=== PATIENT | female | born 1955 | race Caucasian/White ===

== ENCOUNTER → 2017-03-30 | Outpatient (CLI) | payer OTHER, MEDICAID | LOC: FIMAGING 14:50 | PROVIDERS: ATTEND Physician Assistant | DX: Z12.39 Encounter for other screening for malignant neoplasm of breast (principal); N63 Unspecified lump in breast | CPT/HCPCS: G0204 ==

== ENCOUNTER 2019-02-11 10:21 | Emergency (ER) | payer OTHER, MEDICAID ==
--- NOTE | 2019-02-11 10:42 | EDPHY ---
H & P Time Seen by Provider: 02/11/19 10:40 HPI/ROS: Chief complaint. Abdominal pain HPI. 63-year-old female with 2 day history right upper quadrant abdominal pain. She describes as steady and hurting with radiation to her back. Nausea but not vomiting or diarrhea. No fever. Somewhat worse with taking a deep breath. Patient does say that when the pain is bad it does help to hold her breath. Otherwise she is not short of breath. No chest pain. Not change with eating. However decreased oral intake. ROS 10 systems were reviewed and negative with the exception of the elements mentioned in the history of present illness Past Medical/Surgical History: Appendectomy, legally deaf Social History: Single, nonsmoker, no alcohol Smoking Status: Never smoked Physical Exam: General Appearance: Alert pleasant well-developed female mild distress vitals are stable Eyes: Pupils equal and round no pallor or injection. ENT, Mouth: Mucous membranes are moist. Respiratory: There are no retractions, lungs are clear to auscultation. Cardiovascular: Regular rate and rhythm. Gastrointestinal: Abdomen is soft with tenderness right upper quadrant. No masses. Normal bowel sounds Neurological: Awake and alert, sensory and motor exams grossly normal. Skin: Warm and dry, no rashes. Musculoskeletal: Neck is supple nontender. Extremities symmetrical, full range of motion. Psychiatric: Patient is oriented X 3, there is no agitation. Constitutional: Initial Vital Signs Temperature (C) 36.9 C 02/11/19 10:26 Heart Rate 56 L 02/11/19 10:26 Respiratory Rate 18 02/11/19 10:26 Blood Pressure 164/95 H 02/11/19 10:26 O2 Sat (%) 97 02/11/19 10:26 O2 Delivery Mode Room Air Allergies/Adverse Reactions: "CAT DANDOR" Allergy (Uncoded 02/11/19 10:25) Home Medications: Medication Instructions Recorded Naproxen 0 mg PO 03/16/12 Ranitidine HCl [Zantac 25] 0 mg PO 03/16/12 buPROPion [Wellbutrin (RX)] 0 mg PO 03/16/12 Hydrocodone/APAP 5/325 [[place] 1 each PO Q4-6PRN PRN #10 tab 02/11/19 5/325 (*)] Medical Decision Making - Diagnostics Imaging Results: Imaging Impressions Abdomen Ultrasound 02/11/19 10:50 Impression: 1. A 2 mm benign gallbladder polyp. 2. No cholelithiasis or biliary ductal dilation. 3. Mild hepatic steatosis. Findings and recommendations discussed with Emergency Department physician, EMANI TRENT at 11:42 hour, 02/11/2019. Final report concurs with initial preliminary interpretation. Chest X-Ray 02/11/19 10:50 Impression: Clear lungs. No acute process. Chest/Thorax CTA 02/11/19 11:42 Impression: 1. No definite pulmonary thromboemboli. 2. No aortic aneurysm or dissection. 3. No acute pulmonary disease. Findings and recommendations discussed with Emergency Department physician, Dr. Emani Trent at 1243 hours on February 11, 2019. Final report concurs with initial preliminary interpretation. A test result has been communicated to a licensed care provider and documented in the [facility] Findings | Result system on 02/11/2019 12:44, Message ID [id number]. Chest x-ray interpreted by me is normal Gallbladder ultrasound shows no evidence for cholelithiasis or cholecystitis Chest CT a shows no evidence of pulmonary embolus Procedures: IV normal saline. Fentanyl for pain. Zofran for nausea ED Course/Re-evaluation: Re-evaluation at 1:00 p.m.. Patient is stable. Patient and I discussed imaging and lab results. We discussed treatment plan including criteria for return and importance of follow-up and further evaluation. She expresses understanding and agreement Differential Diagnosis: Right upper quadrant pain for 2 days but normal workup. No evidence for cholecystitis or cholelithiasis. Elevated D-dimer but no evidence for pneumonia or pulmonary embolus. Etiology of patient's pain is not clear - Data Points Laboratory Results: Laboratory Results 02/11/19 10:45 02/11/19 10:45 02/11/19 02/11/19 02/11/19 10:45 10:45 10:45 WBC 6.91 10^3/uL 10^3/uL (3.80-9.50) RBC 4.81 10^6/uL 10^6/uL (4.18-5.33) Hgb 14.4 g/dL g/dL (12.6-16.3) Hct 44.5 % % (38.0-47.0) MCV 92.5 fL fL (81.5-99.8) MCH 29.9 pg pg (27.9-34.1) MCHC 32.4 g/dL g/dL (32.4-36.7) RDW 13.7 % % (11.5-15.2) Plt Count 304 10^3/uL 10^3/uL (150-400) MPV 10.5 fL fL (8.7-11.7) Neut % (Auto) 60.4 % % (39.3-74.2) Lymph % (Auto) 31.1 % % (15.0-45.0) [place] % (Auto) 6.8 % % (4.5-13.0) Eos % (Auto) 1.0 % % (0.6-7.6) Baso % (Auto) 0.6 % % (0.3-1.7) Nucleat RBC Rel Count 0.0 % % (0.0-0.2) Absolute Neuts (auto) 4.17 10^3/uL 10^3/uL (1.70-6.50) Absolute Lymphs (auto) 2.15 10^3/uL 10^3/uL (1.00-3.00) Absolute Monos (auto) 0.47 10^3/uL 10^3/uL (0.30-0.80) Absolute Eos (auto) 0.07 10^3/uL 10^3/uL (0.03-0.40) Absolute Basos (auto) 0.04 10^3/uL 10^3/uL (0.02-0.10) Absolute Nucleated RBC 0.00 10^3/uL 10^3/uL (0-0.01) Immature Gran % 0.1 % % (0.0-1.1) Immature Gran # 0.01 10^3/uL 10^3/uL (0.00-0.10) D-Dimer 0.64 ug/mLFEU H ug/mLFEU (0.00-0.50) Sodium 139 mEq/L mEq/L (135-145) Potassium 4.5 mEq/L mEq/L (3.5-5.2) Chloride 103 mEq/L mEq/L (97-110) Carbon Dioxide 23 mEq/l mEq/l (22-31) Anion Gap 13 mEq/L mEq/L (6-14) BUN 12 mg/dL mg/dL (7-23) Creatinine 0.7 mg/dL mg/dL (0.6-1.0) Estimated GFR > 60 Glucose 124 mg/dL H mg/dL (70-100) Calcium 9.4 mg/dL mg/dL (8.5-10.4) Total Bilirubin 0.4 mg/dL mg/dL (0.1-1.4) Conjugated Bilirubin 0.2 mg/dL mg/dL (0.0-0.5) Unconjugated Bilirubin 0.2 mg/dL mg/dL (0.0-1.1) AST 22 IU/L IU/L (14-46) ALT 33 IU/L IU/L (9-52) Alkaline Phosphatase 88 IU/L IU/L (38-126) Total Protein 7.1 g/dL g/dL (6.3-8.2) Albumin 4.3 g/dL g/dL (3.5-5.0) Lipase 91 IU/L IU/L (23-300) Medications Given: Discontinued Medications Fentanyl (Sublimaze) 50 mcg IVP EDNOW ONE Stop: 02/11/19 10:51 Last Admin: 02/11/19 11:07 Dose: 50 mcg Sodium Chloride (Ns) 1,000 mls @ 0 mls/hr IV EDNOW ONE; Wide Open PRN Reason: Protocol Stop: 02/11/19 10:51 Last Admin: 02/11/19 11:07 Dose: 1,000 mls Sodium Chloride (Ns) 1,000 mls @ 0 mls/hr IV ONCE ONE; Wide Open PRN Reason: Protocol Stop: 02/11/19 11:43 Last Admin: 02/11/19 12:00 Dose: 1,000 mls Ondansetron HCl (Zofran) 4 mg IVP EDNOW ONE Stop: 02/11/19 10:51 Last Admin: 02/11/19 11:07 Dose: 4 mg Departure - Departure Disposition: Home, Routine, Self-Care Clinical Impression: Abdominal pain Qualifiers: Abdominal location: right upper quadrant Qualified Code(s): R10.11 - Right upper quadrant pain Condition: Good Instructions: Acute Abdominal Pain (ED) Additional Instructions: Return for worsening symptoms Re-evaluation by PCP in the next 2 days. Hydrocodone as needed for pain Referrals: Sole Harding PA [Primary Care Provider] - 1-2 days without fail Prescriptions: Hydrocodone/APAP 5/325 [[place] 5/325 (*)] 1 each PO Q4-6PRN PRN #10 tab PRN Reason: Pain, Moderate
[2019-02-11] MEDS ORDERED: fentaNYL 100 MCG/2 ML INJ IVP ONE (10:50)
[2019-02-11] MEDS ORDERED: ONDANSETRON 4 MG/2 ML VIAL IVP ONE (10:50)
[2019-02-11] MEDS ORDERED: NS 1,000 ML IV ONE ×2 (10:50→11:42)
[2019-02-11 11:02] LABS: PLATELET COUNT 304 10^3/uL (150-400)
[2019-02-11] MEDS ORDERED: IOPAMIDOL (ISOVUE 370) 100 ML BTL IV ONE (11:50)
[2019-02-11 13:27] VITALS: BP 142/85
== END 2019-02-11 13:23 | disposition home or self-care (01) ==
DX: R10.11 Right upper quadrant pain (principal); K82.4 Cholesterolosis of gallbladder; K76.0 Fatty (change of) liver, not elsewhere classified; H91.3 Deaf nonspeaking, not elsewhere classified; E86.9 Volume depletion, unspecified; Z90.89 Acquired absence of other organs
CPT/HCPCS: 71045; 71275; 76705; 96361; 96374; 96375; 99285; J2405; J3010; Q9967

== ENCOUNTER 2019-02-17 10:54 | Observation (INO) | payer OTHER, MEDICAID | END 2019-02-18 10:29 | disposition home or self-care (01) | LOC: F3E 16:31 ==

== ENCOUNTER → 2019-02-17 | Outpatient (CLI) | payer OTHER, MEDICAID | LOC: EEVIPCON 07:52 → FIMAGING 07:52 | PROVIDERS: ATTEND Physician Assistant | DX: R10.11 Right upper quadrant pain (principal); K82.8 Other specified diseases of gallbladder | CPT/HCPCS: 78227; A9537 ==